=== PATIENT | male | born 1955 | race Caucasian/White ===

== ENCOUNTER → 2023-01-25 | Outpatient (CLI) | payer OTHER | END | disposition home or self-care (01) | LOC: LAB 09:15 → LAB SHORT 09:15 | DX: N30.91 Cystitis, unspecified with hematuria (principal) | CPT/HCPCS: 87086; 87147 ==

== ENCOUNTER 2023-03-16 20:41 | Inpatient (IN) | payer OTHER ==
[~2023-03-16] VITALS: Ht 177.8 cm; Wt 84.9 kg
[2023-03-16 21:08] LABS: BASOPHILS ABSOLUTE AUTO 0.04 K/mm3 (0.00-0.23); BASOPHILS PERCENT AUTO 1 % (0-2); EOSINOPHILS ABSOLUTE AUTO 0.19 K/mm3 (0.00-0.68); EOSINOPHILS PERCENT AUTO 3 % (0-6); Hematocrit 44.7 % (37.0-53.0); Hemoglobin 15.3 g/dL (13.5-17.5); IMMATURE GRAN ABSOLUTE AUTO 0.01 K/mm3 (0.00-0.10); IMMATURE GRAN PERCENT AUTO 0 % (0-1); LYMPHOCYTES ABSOLUTE AUTO 1.46 K/mm3 (0.84-5.20); LYMPHOCYTES PERCENT AUTO 21 % (21-46); MONOCYTES ABSOLUTE AUTO 0.44 K/mm3 (0.16-1.47); MONOCYTES PERCENT AUTO 6 % (4-13); Mean Corpuscular HGB 30.8 pg (26.0-34.0); Mean Corpuscular HGB Conc 34.2 g/dL (31.5-36.5); Mean Corpuscular Volume 90 fL (80-100); Mean Platelet Volume 9.5 fL (9.1-12.4); NEUTROPHILS PERCENT AUTO 69 % (41-73); Platelet Count 218 K/mm3 (150-400); RDW Coefficient Variation 12.5 % (11.7-14.2); RDW Standard Deviation 41.1 fL (35.1-46.3); Red Blood Cell Count 4.97 M/mm3 (4.30-5.90); White Blood Cell Count 6.94 K/mm3 (4.00-11.30)
[2023-03-16 21:30] LABS: Albumin, Blood 3.9 g/dL (3.4-5.0); Albumin/Globulin Ratio 1.4 (0.8-1.8); Bilirubin, Total 0.5 mg/dL (0.1-1.0); Bun/Creatinine Ratio 17.6 (12.0-20.0); Creatinine, Blood 0.85 mg/dL (0.60-1.20); Globulin, Blood 2.8 g/dL (2.2-4.0); Potassium, Blood 3.6 mmol/L (3.5-5.5); Total Protein, Blood 6.7 g/dL (6.4-8.2)
[2023-03-16 23:07] LABS: Anti-Xa UFH, PHA Monitoring <0.10 IU/mL; International Normalized Ratio 0.98; Prothrombin Time Results 10.3 Sec (9.7-11.5)
[2023-03-17] VITALS (14 sets, daily range): BP systolic 108–165; BP diastolic 78–103
--- NOTE | 2023-03-17 05:30 | NUR ---
SHIFT SUMMARY A/OX4, IND IN ROOM. AT BEDSIDE. SPO2 >92% ON RA. TELE SB/SR 50-60S. REPORTS CHEST "SORENESS", NO ACTIVE CP. NPO SINCE MIDNIGHT. VSS, NO ACUTE CHANGES AT THIS TIME. BED IN LOWEST POSITION WITH CALL LIGHT IN REACH. WILL CONTINUE TO MONITOR AND REPORT TO ONCOMING RN.
--- NOTE | 2023-03-17 05:51 | NUR ---
HEPARIN GTT PER PHARMACIST, HOLDING HEPARIN FROM 0550 TO 0650. WILL AWAIT NEW ORDER TO RESTART AT A LOWER RATE.
[2023-03-17 05:57] LABS: CHOL/HDL RATIO 3.5; Cholesterol 149 mg/dL (50-200); HDL Cholesterol 43 mg/dL (>39); LDL/HDL RATIO 2.3; Low Density Lipoprotein Chol 98 mg/dL (0-110); Triglycerides 39 mg/dL (30-160); Very Low Density Lipoprot Chol 7 mg/dL (6-32)
--- NOTE | 2023-03-17 17:05 | NUR ---
PT ARRIVED BACK TO THE ROOM AT APPROX 1300 FROM SE[employer] TEACHER POST ANGIO 2 STENTS PLACED PT HAS RIGHT RADIAL AND RIGHT GROIN ACCESS, GROIN ACCESS WITH CLOSURE DEVICE THEN 2 TR BANDS ON RIGHT RADIAL ACCESS PER REPORT PT STARTED DEVELOPING SMALL HEMATOMA NEXT TO THE ACCESS TR BAND SITE, NO ISSUES OF THE MOMENT 2ND TR BAND WAS REMOVED, SOME BRUISING NOTED BUT NO HEMATOMA, PRIMARY TR BAND IS NOW FULLY DEFLATED WILL APPLY CLEAR DRESSING ONCE FULLY RECOVERED. RIGHT GROIN SITE STARTED OOZING BLOOD COUPLE OF HOURS AFTER SITTING PT UP AT 5 DEGREES CHG DRESSING WAS CHANGE TWICE EVEN AFTER MANUAL PRESSURE FOR 10 MINS. SAND BAG WAS APPLIED FOR PRESSURE, NO HEMATOMA OR TENDERNESS AROUND THE SITE. PT SITTING UP AT 15 DEGREES AT THIS TIME. WAS IN THE ROOM ALL SHIFT AWARE OF THE PLAN OF CARE. DIET RESUMED PT ABLE TO TOLERATE, VITALS HAS BEEN STABLE HRR SR AT 60'S, SBP 115-130'S, SATS ABOVE 95% ON RA, AFEBRILE. PT WAS MEDICATED WITH TYLENOL FOR LOWER BACK PAIN/DISCOMFORT D/T LAYING FLAT 02/22. WILL CONTINUE TO MONITOR
[2023-03-18 00:04] VITALS: BP 130/94
[2023-03-18 04:15] VITALS: BP 137/96
[2023-03-18 05:02] LABS: BASOPHILS ABSOLUTE AUTO 0.05 K/mm3 (0.00-0.23); BASOPHILS PERCENT AUTO 1 % (0-2); EOSINOPHILS ABSOLUTE AUTO 0.15 K/mm3 (0.00-0.68); EOSINOPHILS PERCENT AUTO 2 % (0-6); Hematocrit 41.6 % (37.0-53.0); Hemoglobin 14.4 g/dL (13.5-17.5); IMMATURE GRAN ABSOLUTE AUTO 0.02 K/mm3 (0.00-0.10); IMMATURE GRAN PERCENT AUTO 0 % (0-1); LYMPHOCYTES PERCENT AUTO 22 % (21-46); MONOCYTES ABSOLUTE AUTO 0.68 K/mm3 (0.16-1.47); MONOCYTES PERCENT AUTO 8 % (4-13); Mean Corpuscular HGB 30.9 pg (26.0-34.0); Mean Corpuscular HGB Conc 34.6 g/dL (31.5-36.5); Mean Corpuscular Volume 89 fL (80-100); Mean Platelet Volume 9.9 fL (9.1-12.4); NEUTROPHILS ABSOLUTE AUTO 5.57 K/mm3 (1.96-9.15); NEUTROPHILS PERCENT AUTO 67 % (41-73); Platelet Count 195 K/mm3 (150-400); RDW Coefficient Variation 12.6 % (11.7-14.2); RDW Standard Deviation 41.2 fL (35.1-46.3); Red Blood Cell Count 4.66 M/mm3 (4.30-5.90); White Blood Cell Count 8.27 K/mm3 (4.00-11.30)
--- NOTE | 2023-03-18 05:03 | NUR ---
Assumed care of pt at 1900. A/Ox4, cooperative with care and calls appropriately. Maintains over 95% on RA. Denies any current CP/pressure, VSS. R radial site C/D/I and without hematoma. R groin site with Neri dressing with scant blood unchanged this entire shift and without hematoma. Patient able to rest most of the night, no acute changes, will report to dayshift RN.
[2023-03-18 05:37] LABS: Albumin, Blood 3.4 g/dL (3.4-5.0); Anion Gap 4 mmol/L (6-16); Blood Urea Nitrogen 13 mg/dL (8-24); Bun/Creatinine Ratio 15.4 (12.0-20.0); CO2, Blood 26 mmol/L (21-32); Calcium, Blood 8.9 mg/dL (8.5-10.1); Chloride, Blood 110 mmol/L (98-108); Creatinine, Blood 0.84 mg/dL (0.60-1.20); Glomerular Filtration Rate 94 (60-); Glucose, Blood 95 mg/dL (70-99); Phosphorus, Blood 3.3 mg/dL (2.5-4.9); Potassium, Blood 3.6 mmol/L (3.5-5.5); Sodium, Blood 140 mmol/L (136-145)
[2023-03-18 07:23] VITALS: BP 140/89
[2023-03-18] MEDS ORDERED: ASPI81CH PO (09:32)
[2023-03-18] MEDS ORDERED: CLOP75 PO (09:33)
[2023-03-18] MEDS ORDERED: ATOR80 PO (09:33)
[2023-03-18] MEDS ORDERED: LISI20 PO (09:34)
[2023-03-18] MEDS ORDERED: METO25 PO (09:36)
== END 2023-03-18 09:55 | disposition home or self-care (01) | DRG 247 ==
LOC: ER 20:41 → PCU 20:42
PROVIDERS: Emergency Medicine; Family Medicine; Student in an Organized Health Care Education/Training Program; ADMIT Internal Medicine
PROC: 027035Z Dilation of Coronary Artery, One Artery with Two Drug-eluting Intraluminal Devices, Percutaneous Approach (ICD-10-PCS; principal; 2023-03-17)
PROC: 4A023N7 Measurement of Cardiac Sampling and Pressure, Left Heart, Percutaneous Approach (ICD-10-PCS; 2023-03-17)
PROC: B211YZZ Fluoroscopy of Multiple Coronary Arteries using Other Contrast (ICD-10-PCS; 2023-03-17)
PROC: B240ZZ3 Ultrasonography of Single Coronary Artery, Intravascular (ICD-10-PCS; 2023-03-17)
DX: I21.4 Non-ST elevation (NSTEMI) myocardial infarction (principal); I10 Essential (primary) hypertension; E78.5 Hyperlipidemia, unspecified; R94.31 Abnormal electrocardiogram [ECG] [EKG]; R73.9 Hyperglycemia, unspecified; I25.10 Atherosclerotic heart disease of native coronary artery without angina pectoris; I08.3 Combined rheumatic disorders of mitral, aortic and tricuspid valves
CPT/HCPCS: 36415; 71046; 76937; 80053; 80061; 80069; 83036; 83690; 84484; 85025; 85347; 85520; 85610; 85730; 92978; 93005; 93010; 93306; 93454; 96365; 99152; 99153; 99285-25; A9270; C1725; C1753; C1760; C1769; C1874; C1887; C1894; C9600; J1644; J2250; J3010; J7030; J7050; Q9967

== ENCOUNTER 2023-03-22 21:42 | Observation (INO) | payer OTHER ==
[~2023-03-22] VITALS: Ht 177.8 cm; Wt 83.9 kg
[~2023-03-22 21:42] MED LIST: ASPI81CH PO; ATOR80 PO; CLOP75 PO; LISI20 PO; METO25 PO
[2023-03-22 22:29] LABS: BASOPHILS ABSOLUTE AUTO 0.06 K/mm3 (0.00-0.23); BASOPHILS PERCENT AUTO 1 % (0-2); EOSINOPHILS PERCENT AUTO 2 % (0-6); Hemoglobin 14.7 g/dL (13.5-17.5); IMMATURE GRAN ABSOLUTE AUTO 0.02 K/mm3 (0.00-0.10); IMMATURE GRAN PERCENT AUTO 0 % (0-1); LYMPHOCYTES ABSOLUTE AUTO 1.13 K/mm3 (0.84-5.20); LYMPHOCYTES PERCENT AUTO 18 % (21-46); MONOCYTES ABSOLUTE AUTO 0.53 K/mm3 (0.16-1.47); MONOCYTES PERCENT AUTO 8 % (4-13); Mean Corpuscular HGB 31.1 pg (26.0-34.0); Mean Corpuscular Volume 89 fL (80-100); Mean Platelet Volume 9.8 fL (9.1-12.4); NEUTROPHILS ABSOLUTE AUTO 4.45 K/mm3 (1.96-9.15); NEUTROPHILS PERCENT AUTO 71 % (41-73); Platelet Count 213 K/mm3 (150-400); RDW Coefficient Variation 12.1 % (11.7-14.2); RDW Standard Deviation 39.2 fL (35.1-46.3); Red Blood Cell Count 4.73 M/mm3 (4.30-5.90); White Blood Cell Count 6.29 K/mm3 (4.00-11.30)
[2023-03-22 22:52] LABS: Albumin/Globulin Ratio 1.4 (0.8-1.8); Bilirubin, Total 0.7 mg/dL (0.1-1.0); Bun/Creatinine Ratio 19.1 (12.0-20.0); Calcium, Blood 8.8 mg/dL (8.5-10.1); Creatinine, Blood 0.89 mg/dL (0.60-1.20); Globulin, Blood 2.8 g/dL (2.2-4.0); Potassium, Blood 4.1 mmol/L (3.5-5.5); Total Protein, Blood 6.8 g/dL (6.4-8.2)
[2023-03-23 02:41] VITALS: BP 137/89
[2023-03-23 06:47] LABS: Albumin, Blood 3.4 g/dL (3.4-5.0); Albumin/Globulin Ratio 1.3 (0.8-1.8); Bilirubin, Total 0.6 mg/dL (0.1-1.0); Bun/Creatinine Ratio 18.2 (12.0-20.0); Calcium, Blood 8.5 mg/dL (8.5-10.1); Creatinine, Blood 0.88 mg/dL (0.60-1.20); Globulin, Blood 2.7 g/dL (2.2-4.0); Potassium, Blood 3.7 mmol/L (3.5-5.5); Total Protein, Blood 6.1 g/dL (6.4-8.2)
[2023-03-23 06:52] LABS: BASOPHILS ABSOLUTE AUTO 0.04 K/mm3 (0.00-0.23); BASOPHILS PERCENT AUTO 1 % (0-2); EOSINOPHILS ABSOLUTE AUTO 0.18 K/mm3 (0.00-0.68); EOSINOPHILS PERCENT AUTO 4 % (0-6); Hematocrit 40.7 % (37.0-53.0); Hemoglobin 14.2 g/dL (13.5-17.5); IMMATURE GRAN ABSOLUTE AUTO 0.02 K/mm3 (0.00-0.10); IMMATURE GRAN PERCENT AUTO 0 % (0-1); LYMPHOCYTES ABSOLUTE AUTO 1.17 K/mm3 (0.84-5.20); LYMPHOCYTES PERCENT AUTO 23 % (21-46); MONOCYTES ABSOLUTE AUTO 0.52 K/mm3 (0.16-1.47); MONOCYTES PERCENT AUTO 10 % (4-13); Mean Corpuscular HGB 31.2 pg (26.0-34.0); Mean Corpuscular HGB Conc 34.9 g/dL (31.5-36.5); Mean Corpuscular Volume 90 fL (80-100); NEUTROPHILS ABSOLUTE AUTO 3.24 K/mm3 (1.96-9.15); NEUTROPHILS PERCENT AUTO 63 % (41-73); Platelet Count 179 K/mm3 (150-400); RDW Coefficient Variation 12.3 % (11.7-14.2); RDW Standard Deviation 40.4 fL (35.1-46.3); Red Blood Cell Count 4.55 M/mm3 (4.30-5.90); White Blood Cell Count 5.17 K/mm3 (4.00-11.30)
[2023-03-23 07:56] VITALS: BP 120/93
--- NOTE | 2023-03-23 13:22 | NUR ---
PT DISCHARGED WITH INSTRUCTIONS, AMBULATED INDEPENDANTLY WITH , DECLINED WHEELCHAIR. IV DC'D. RX FAXED TO PHARM. PT TO FOLLOW UP WITH DR DUMONT
== END 2023-03-23 12:20 | disposition home or self-care (01) ==
LOC: ER 21:42 → MEDS 21:43 → ENPENDDIS 03-23 12:04 → MEDS 03-23 12:20
PROVIDERS: Student in an Organized Health Care Education/Training Program; ADMIT Student in an Organized Health Care Education/Training Program
DX: I25.10 Atherosclerotic heart disease of native coronary artery without angina pectoris (principal); I10 Essential (primary) hypertension; I25.2 Old myocardial infarction; Z79.82 Long term (current) use of aspirin; Z79.02 Long term (current) use of antithrombotics/antiplatelets; Z79.899 Other long term (current) drug therapy; Z95.5 Presence of coronary angioplasty implant and graft
CPT/HCPCS: 36415; 80053; 84484; 85025; 93005; 93010; 99284-25; G0378; J1650